=== PATIENT | female | born 2000 | race Caucasian/White ===

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

== ENCOUNTER 2024-01-07 11:38 | Emergency (ER) | payer BC ==
[2024-01-07 12:09] VITALS: RESP 18; BMI 27.8
[2024-01-07 13:24] LABS: BASO % 0.5 % (0-2.0); EOS % 2.7 % (0-4.5); HEMATOCRIT 45.6 % (32.4-45.2); HEMOGLOBIN 15.4 GM/dL (10.7-15.3); LYMPH % 30.1 % (8-40); MCH 28.2 pg (25.7-33.7); MCHC 33.9 g/dl (32.0-36.0); MEAN CELL VOLUME 83.1 fl (80-96); MEAN PLT VOLUME 7.4 fl (7.5-11.1); MONO % 8.3 % (3.8-10.2); NEUT % 58.4 % (42.8-82.8); PLATELET COUNT 314 10^3/uL (134-434); RBC 5.48 M/mm3 (3.60-5.2); RDW 13.3 % (11.6-15.6); WHITE BLOOD COUNT 7.5 K/mm3 (4.0-10.0)
[2024-01-07 13:31] LABS: INR 0.98 (0.83-1.09); PROTHROMBIN TIME (PATIENT) 11.1 SEC (9.7-13.0)
[2024-01-07 13:33] LABS: ACTIVATED PTT 29.8 SECONDS (25.2-36.5)
[2024-01-07 13:53] LABS: POTASSIUM 4.3 mmol/L (3.5-5.1)
[2024-01-07 13:55] LABS: BLOOD UREA NITROGEN 11.1 mg/dL (7-18); CALCIUM 10.1 mg/dL (8.5-10.1)
[2024-01-07 13:56] LABS: ALBUMIN 3.8 g/dl (3.4-5.0); MAGNESIUM 1.9 mg/dL (1.8-2.4)
[2024-01-07 14:00] LABS: BILIRUBIN,TOTAL 0.3 mg/dL (0.2-1); PHOSPHOROUS 3.4 mg/dL (2.5-4.9); TOT PROT 7.3 g/dl (6.4-8.2)
[2024-01-07 14:06] LABS: CREATININE 0.8 mg/dL (0.55-1.3)
[2024-01-07] MEDS ORDERED: ACETAMINOPHEN INJECTION 100 ML IVPB ONE (14:06)
[2024-01-07] MEDS: ACETAMINOPHEN 1000 MG/100 ML BAG IVPB ONE (14:23)
[2024-01-07 18:56] VITALS: TEMP 99.3
[2024-01-07 18:58] VITALS: BP 102/67; PULSE 95
== END 2024-01-07 18:53 | disposition home or self-care (01) ==
LOC: JER 11:38
PROC: 3E033NZ Introduction of Analgesics, Hypnotics, Sedatives into Peripheral Vein, Percutaneous Approach (ICD-10-PCS; principal; 2024-01-07)
DX: R07.9 Chest pain, unspecified (principal); Q27.30 Arteriovenous malformation, site unspecified; Z20.822 Contact with and (suspected) exposure to COVID-19
CPT/HCPCS: 0241U-QW; 36415; 71046-TC-FY; 71275-TC; 80053; 83735; 84100; 84484; 84703; 85025; 85610; 85730; 93005; 93010; 99285-25; J0131; Q9967